=== PATIENT | female | born 1995 | race Caucasian/White ===

== ENCOUNTER 2019-12-16 12:51 | Outpatient (CLI) | payer OTHER | END 2019-12-16 12:52 | disposition home or self-care (01) | LOC: COV 12:51 | PROVIDERS: ATTEND Family Medicine | DX: Z20.828 Contact with and (suspected) exposure to other viral communicable diseases (principal) ==

== ENCOUNTER 2023-09-25 10:04 | Outpatient (CLI) | payer MEDICAID ==
--- NOTE | 2023-09-25 11:14 | XRAY Report ---
PROCEDURE: Wrist 3+V BL INDICATIONS: ANESTHESIA OF SKIN TECHNIQUE: 3 views of the wrist were acquired. COMPARISON: None. FINDINGS: Bones: No fractures or dislocations. Joint spaces are well preserved. No gross bony erosive changes. No suspicious bony lesions. Soft tissues: No suspicious soft tissue calcifications or masses. IMPRESSION: No acute bony abnormality. Reviewed by: Trent Nick MD on 09/25/2023 11:12 AM PDT Approved by: Trent Nick MD on 09/25/2023 11:12 AM PDT Station ID: [id number]
== END 2023-09-25 10:05 | disposition home or self-care (01) ==
LOC: DI 10:04
PROVIDERS: ATTEND Physician Assistant Surgical
DX: R20.0 Anesthesia of skin (principal)

== ENCOUNTER 2023-12-26 08:00 | Outpatient (CLI) | payer MEDICAID ==
--- NOTE | 2023-12-27 08:15 | XRAY Report ---
PROCEDURE: Hand 1-2V BL INDICATIONS: BILATERAL HAND PAIN TECHNIQUE: AP and lateral views of the hands COMPARISON: Bilateral wrist x-rays 09/25/2023 FINDINGS: No acute fracture or dislocation. The joint spaces are preserved. No significant joint effusion. No p eriarticular osteopenia, soft tissue calcifications, or osseous erosions. IMPRESSION: No acute radiographic abnormality of the hands. Reviewed by: Juan Manuel Cantor MD on 12/27/2023 8:14 AM PDT Approved by: Juan Manuel Cantor MD on 12/27/2023 8:14 AM PDT Station ID: [id number]
== END 2023-12-26 23:59 | disposition home or self-care (01) ==
LOC: DI.S 08:00
PROVIDERS: ATTEND Registered Nurse
DX: M79.642 Pain in left hand (principal); M79.641 Pain in right hand